=== PATIENT | female | born 1995 | race African-American/Black ===

== ENCOUNTER 2016-06-05 15:46 | Emergency (ER) | payer OTHER ==
[~2016-06-05] VITALS: Ht 165.1 cm; Wt 64.0 kg
[~2016-06-05 15:46] MED LIST: ZOFR4TAB3 SL
[2016-06-05 15:49] VITALS: BP 135/85; PULSE 117; RESP 16; TEMP 98; O2SAT 96
== END 2016-06-05 18:50 | disposition left against medical advice (07) ==
LOC: NED 15:46
DX: R10.9 Unspecified abdominal pain (principal); Z53.21 Procedure and treatment not carried out due to patient leaving prior to being seen by health care provider
CPT/HCPCS: 99281